=== PATIENT | female | born 1985 | race Caucasian/White ===

== ENCOUNTER 2021-03-17 18:28 | Emergency (ER) | payer OTHER, BC, SELFPAY ==
[2021-03-17 18:29] VITALS: BP 128/63; PULSE 82; RESP 16; TEMP 36.6; O2SAT 99; BMI 26.1
--- NOTE | 2021-03-17 18:52 | EDS_ITS ---
HPI History of Present Illness HPI Narrative: Patient presents with right hand injury that occurred today. Patient states she got her hand caught between a piece of heavy plastic and a movable ladder. Patient states the pain is worse over the ulnar aspect of the right hand over the fourth and fifth metacarpals and ulnar aspect of the wrist. Patient states the pain is worse with certain movements. Patient midst to some tingling in her fingers. Patient describes her pain as sharp and stabbing. Patient states the pain has been shooting up her forearm. Patient denies any other injuries. Chief Complaint: Upper Extremity Injury Informant: patient Occured/Mechanism Mechanism/Context: Yes blunt trauma Onset/Context/Timing Onset: Today Context: Sudden Onset Timing: Continuous Quality of Pain: Sharp and Stabbing Location: Right hand Worsened by: Movement Relieved by: Nothing Associated Symptoms Associated Symptoms: Positive for Parasthesia; Negative for Weakness and Loss of Funtion [facility] Medical History Eczema Allergy/AdvReac Type Severity Reaction Status Date / Time amoxicillin Allergy Rash Verified 03/17/21 18:33 bee venom protein (honey bee) Allergy Itching Verified 03/17/21 18:33 cefadroxil [From Duricef] Allergy Hives Verified 03/17/21 18:33 Surgical History Hx of appendectomy Social History Smoking Status: Never smoker ROS ROS ED Constitutional Constitutional ED: Denies chills or fever(s) Eyes Eyes: Denies blurry vision or change in vision ENT ENT ED: Reports sore throat; Denies rhinorrhea Cardiovascular Cardiovascular: Denies chest pain or palpitations Respiratory/Chest Respiratory/Chest: Denies cough or dyspnea Gastrointestinal Gastrointestinal: Denies nausea or vomiting Genitourinary Genitourinary ED: Denies dysuria or hematuria Musculoskeletal Musculoskeletal: Reports back pain; Denies neck pain Integumentary Reports rash; Denies abscess Neurologic Neurologic: Denies headache(s) or weakness Allergic/Immunologic Allergic/Immunologic ED: Denies mouth swelling or urticaria EXAM Physical Exam Const Vital Signs: 03/17/21 18:29 Temperature 97.8 F Temperature Source Temporal Pulse Rate 82 Respiratory Rate 16 Blood Pressure 128/63 H Blood Pressure Mean 84 Pulse Ox 99 Positive well nourished and well developed General Appearance ED: well developed HEENT Reports moist mucous membranes Extremity Extremity Narrative: There is tenderness with mild edema and ecchymosis over the right fourth and fifth metacarpals. There is no bony crepitance or step-off. There is no obvious deformity noted. Range of motion was slightly limited in flexion of the fourth and fifth MP joints secondary to pain. Sensation was intact to light touch in the radial, median, and ulnar areas. Strength is 5/5 in the radial, median, and ulnar areas. Radial pulses are equal bilaterally. There is no tenderness over the right elbow. Neuro oriented x3, CN's II-XII intact bilaterally, moves all extremities, no focal motor deficits and no sensory deficits noted Sensorium / Orientation: alert Psych mental status grossly normal MDM MDM MDM Narrative Medical decision making narrative: X-rays of the right hand were obtained. There are 3 views. On my interpretation, there is no acute fracture. There is no dislocation. There is some mild soft tissue swelling. Radiologist also interpreted the x-rays and agrees. Patient was advised of her findings. Patient was given a Velcro wrist splint. Patient was instructed to ice and elevate the right wrist. Patient was instructed to take Tylenol or ibuprofen as needed for pain. Patient was instructed to follow-up with the now clinic since this is Workmen's Comp. Patient was given restrictions for work. Patient was instructed to return if worse in any way. Patient understood and was agreeable with the plan. All questions were answered. Discharge Plan Triage Chief Complaint: Upper Extremity Injury ED Provider: Adolfo Campbell Dx/Rx/DC Orders Clinical Impression: Contusion of right hand, initial encounter Instructions: ED Hand Contusion Stand Alone Forms: Work Status Form Primary Care Provider: Care Physician,No Primary Referrals: Care Physician,No Primary [Primary Care Provider] - Clinic,NOW [NON-STAFF] - 3-5 Days Disposition Disposition: Home, Self Care
--- NOTE | 2021-03-17 18:55 | RAD_ITS ---
STUDY: X-RAY - RIGHT HAND REASON FOR EXAM: Female, 35 years old. Injury/Pain TECHNIQUE: 3 view(s) of the hand. COMPARISON: None. FINDINGS: Normal radiocarpal articulation. Normal distal radioulnar joint. Normal visualized carpal bones. Normal carpal articulations Normal carpometacarpal articulation of the thumb. Normal second through fifth carpometacarpal joints. Normal metacarpi. Normal metacarpophalangeal joint of the thumb. Normal interphalangeal joint of the thumb. Normal proximal and distal phalanges of the thumb. Normal metacarpophalangeal joints of the second through fifth fingers. Normal proximal and distal interphalangeal joints of the second through fifth fingers. Normal phalanges of the second through fifth fingers. The soft tissue structures are unremarkable. RAD/Hand Min 3 Views IMPRESSION: Normal x-ray examination of the hand. Electronically Signed: Leif Mendoza MD at 19:21 EST Tel , Service support ,
[2021-03-17 19:55] VITALS: BP 128/72; PULSE 72; RESP 14; TEMP 36.9; O2SAT 98
== END 2021-03-17 20:11 | disposition home or self-care (01) ==
PROVIDERS: Emergency Provider Emergency Medicine; Visit Provider Emergency Medicine
DX: S60.221A Contusion of right hand, initial encounter (principal); W23.0XXA Caught, crushed, jammed, or pinched between moving objects, initial encounter; Y93.9 Activity, unspecified; Y92.9 Unspecified place or not applicable
CPT/HCPCS: 73130; 99283

== ENCOUNTER 2022-07-12 15:16 | Emergency (ER) | payer BC, SELFPAY ==
[2022-07-12 15:18] VITALS: BP 140/74; PULSE 66; RESP 20; TEMP 35.7; O2SAT 100; BMI 31.6
--- NOTE | 2022-07-12 15:36 | US_ITS ---
INDICATION: left sv pelvic pain -- PELVIC PAIN MID TO SLIGHTLY LEFT X 1 DAY EXAMINATION: Ultrasound US Transvaginal Non-OB TECHNIQUE: Transvaginal (for optimal evaluation of the adnexa) pelvic ultrasound was performed. Grayscale, spectral waveform, and color flow Doppler evaluation of the adnexa. COMPARISON: None. FINDINGS: UTERUS: Anteverted. The uterus measures 8.1 cm in length. There is no uterine mass. The endometrial stripe measures 8 mm in AP diameter which is within normal limits. RIGHT OVARY: 3.5 x 2.0 x 5.4 cm. Non-enlarged, normal echogenicity. There is normal arterial inflow and venous outflow present in the right ovary. LEFT OVARY: 2.5 x 2.8 x 1.7 cm. Non-enlarged, normal echogenicity. There is normal arterial inflow and venous outflow present in the left ovary. FREE FLUID: Trace free fluid within cul-de-sac. Small cervical nabothian cyst. US/Transvaginal Non- IMPRESSION: No acute ultrasonographic abnormality is identified. Electronically Signed: Yeison Graham MD at 18:23 EDT ,
--- NOTE | 2022-07-12 15:48 | ED.VIS.GI ---
HPI HPI - GI History of Present Illness Chief Complaint: Nausea/Vomiting Informant: patient Abdominal Pain/Flank Pain Onset: Today Context: Gradual Onset Timing: Continuous Quality: Aching Location: - (lower abd/pelvis, worse on L) Current Severity: Severe Maximum Severity: Severe Worsened by: Nothing Relieved by: Nothing Nausea/Vomiting/Emesis GI Symptom: Positive for Nausea and Vomiting Diarrhea/Melena/Hematochezia GI Symptom: Negative for Diarrhea, Melena or Hematochezia Associated Symptoms Associated Symptoms: Negative for Dysuria, Frequency, Hematuria or Urgency Narrative Narrative: Patient states she started her menstrual cycle yesterday. She started having severe lower abdominal pain today, it has progressed over the last several hours, this all occurred while she was at work. She states because of this, she cannot do what she usually does when this occurs, which is a couple times a year, which is to take a couple [id number] medications together for pain including Pamprin, and to sandwich myself between ice packs and a heating pad. When this occurs in the past, she states it consistently starts within 48 hours of starting her menstrual cycle. She states she usually has normal menstrual cycles that are regular, and the last few have been normal. When she started her cycle yesterday, it was not unexpected or unusual at all. She states in the past when she has had these episodes, they have occurred with her cycle. She states only thing that is different today is that she was at work and since she is actively having the discomfort she decided to come to the emergency department to see if anyone could determine a reason. Additionally she states she has a bit of whitecoat syndrome and for that reason has a hard time making appointments with doctors and does not have a family service worker. [facility] Medical History Contusion of right hand Eczema Home Medications cetirizine 10 mg tablet 10 mg QHS 07/12/22 [History Last Taken Unknown] cholecalciferol (vitamin D3) 25 mcg (1,000 unit) tablet (Vitamin D3) 25 mcg PO DAILY 07/12/22 [History Last Taken Unknown] fluticasone propionate 50 mcg/actuation nasal spray,suspension spray intranasal PRN Nasal Congestion 07/12/22 [History Last Taken Unknown] Allergy/AdvReac Type Severity Reaction Status Date / Time amoxicillin Allergy Rash Verified 07/12/22 15:18 bee venom protein (honey bee) Allergy Itching Verified 07/12/22 15:18 cefadroxil [From Duricef] Allergy Hives Verified 07/12/22 15:18 levofloxacin [From Levaquin] Allergy Other Verified 07/12/22 18:25 Surgical History Hx of appendectomy Social History Smoking Status: Never smoker ROS ROS ED Constitutional Constitutional ED: Denies chills or fever(s) Eyes Eyes: Denies change in vision or diplopia ENT ENT ED: Denies rhinorrhea or sore throat Cardiovascular Cardiovascular: Denies chest pain or palpitations Respiratory/Chest Respiratory/Chest: Denies cough or dyspnea Gastrointestinal Gastrointestinal: Reports abdominal pain, nausea and vomiting; Denies diarrhea Genitourinary Genitourinary ED: Denies dysuria, hematuria or urinary frequency Musculoskeletal Musculoskeletal: Reports back pain; Denies neck pain Integumentary Denies abscess or rash Neurologic Neurologic: Denies headache(s), paresthesias or weakness Psychiatric Psychiatric: Denies anxiety or suicidal thoughts EXAM Physical Exam Const Vital Signs: 07/12/22 15:18 07/12/22 18:20 Temperature 96.3 F L Temperature Source Temporal Pulse Rate 66 85 Respiratory Rate 20 H 16 Blood Pressure 140/74 H 127/67 H Blood Pressure Mean 96 87 Pulse Ox 100 97 Oxygen Delivery Method Room Air Room Air Positive well nourished and well developed Constitutional Narrative: In mild painful distress General Appearance ED: well developed HEENT Reports moist mucous membranes normocephalic and atraumatic Eyes PERRL and EOMs intact bilaterally Neck full ROM and supple Resp normal respiratory effort and clear to auscultation bilaterally Cardio regular rate, regular rhythm and no murmurs GI non-distended GI Narrative: Mild tenderness compared with the amount of pain patient is in, suprapubic and left pelvis area. Auscultation: normoactive bowel sounds Palpation: soft Back/Spine no CVA tenderness General Back: other FROM Extremity normal to inspection General Extremety ED: Negative for edema, pulses abnormal or tenderness General Extremity: Negative for edema or pulses abnormal Neuro oriented x3, CN's II-XII intact bilaterally and no sensory deficits noted Sensorium / Orientation: awake and alert Motor Exam: strength 5/5 throughout Skin no rashes or lesions noted and no wounds MDM MDM MDM Narrative Medical decision making narrative: Given the symptoms coinciding with her cycle, this seems more likely to be gynecologic in etiology. The patient is in agreement. We started with basic labs, urine, which was negative, and a transvaginal ultrasound to rule out torsion given how much pain she was in. Meanwhile she was treated with IV Toradol, Zofran, morphine. She felt a lot better on reevaluation. She does have a leukocytosis of 18.7, and the transvaginal ultrasound images are reviewed as well as the interpretation, and I agree with it. Basically normal. Given her leukocytosis and leftward shift, I recommended performing a CT of the abdomen/pelvis to rule out atypical presentations of other disease such as appendicitis, diverticulitis, or other GI inflammatory/infectious etiology. She was amenable. I reviewed those images and interpretation and I agree with it, basically normal again. The patient has been here for over 5 hours and is doing very well. She states typically when she has had these episodes they do not last 8 hours or so, she mainly came here because she was symptomatic during the time. Endometriosis is in the differential diagnosis here as well which we discussed, however odd that she would only have symptoms a couple times a year during a couple different cycles not everyone. I recommend close outpatient follow-up with gynecology. She is amenable to that. Given appropriate discharge instructions. Lab Data Attestation: I reviewed the patient's lab results. Labs: Laboratory Results - last 24 hr 07/12/22 07/12/22 07/12/22 16:11 16:11 17:23 WBC 18.7 H RBC 4.51 Hgb 12.6 Hct 38.7 MCV 85.8 MCH 27.9 MCHC 32.6 RDW Std Deviation 41.4 RDW Coeff of Casey 13.2 Plt Count 301 MPV 9.2 Immature Gran % (Auto) 0.700 Neut % (Auto) 88.2 H Lymph % (Auto) 7.9 L [place] % (Auto) 2.9 Eos % (Auto) 0.1 Baso % (Auto) 0.2 Absolute Neuts (auto) 16.5 H Absolute Lymphs (auto) 1.48 Nucleated RBC % 0 Sodium 139 Potassium 3.5 Chloride 109 H Carbon Dioxide 20.0 L Anion Gap 10 BUN 15 Creatinine 0.76 Estim Creat Clear Calc 89.22 Est GFR (MDRD) Af Amer 111 Est GFR (MDRD) Non-Af 92 BUN/Creatinine Ratio 19.8 Glucose 106 Calcium 8.9 Urine Color Yellow Urine Clarity Sl. Cloudy Urine pH 6.5 Ur Specific [place] 1.020 Urine Protein 30 H Urine Glucose (UA) Normal Urine Ketones 150 A* Urine Occult Blood 250 H Urine Nitrite Negative Urine Bilirubin Negative Urine Urobilinogen Normal Ur Leukocyte Esterase 25 H Urine RBC 50-100 SEEN Urine WBC 0-5 SEEN Ur Squamous Epith Cells 0-5 SEEN Urine Bacteria 0 SEEN Urine Mucus 0 SEEN Urine Test 07/12/22 17:23 WBC RBC Hgb Hct MCV MCH MCHC RDW Std Deviation RDW Coeff of Casey Plt Count MPV Immature Gran % (Auto) Neut % (Auto) Lymph % (Auto) [place] % (Auto) Eos % (Auto) Baso % (Auto) Absolute Neuts (auto) Absolute Lymphs (auto) Nucleated RBC % Sodium Potassium Chloride Carbon Dioxide Anion Gap BUN Creatinine Estim Creat Clear Calc Est GFR (MDRD) Af Amer Est GFR (MDRD) Non-Af BUN/Creatinine Ratio Glucose Calcium Urine Color Urine Clarity Urine pH Ur Specific [place] Urine Protein Urine Glucose (UA) Urine Ketones Urine Occult Blood Urine Nitrite Urine Bilirubin Urine Urobilinogen Ur Leukocyte Esterase Urine RBC Urine WBC Ur Squamous Epith Cells Urine Bacteria Urine Mucus Urine Test Negative Radiography Diagnostic Testing: Clinical Impression(s) from Imaging Studies Transvaginal US 07/12/22 15:36 IMPRESSION: No acute ultrasonographic abnormality is identified. Electronically Signed: Yeison Graham MD at 18:23 EDT , Abdomen/Pelvis CT 07/12/22 19:17 IMPRESSION: Trace free fluid which could be physiologic. Normal-appearing uterus and adnexa. No focal inflammatory process identified elsewhere in the abdomen. Electronically Signed: Yeison Graham MD at 19:47 EDT , Discharge Plan Triage Chief Complaint: Nausea/Vomiting Other Complaint: Dizziness ED Provider: Scott Bobby Dx/Rx/DC Orders Clinical Impression: Pelvic pain in female Instructions: ED Pelvic Pain, Unknown Cause Prescriptions: No Action cetirizine 10 mg tablet 10 mg QHS Label Comments: TAKE 1 TABLET BY MOUTH ONCE DAILY FOR 30 DAYS fluticasone propionate 50 mcg/actuation spray,suspension INTRANASAL PRN (Reason: Nasal Congestion) Label Comments: SPRAY 2 SPRAYS IN EACH NOSTRIL DAILY FOR 1 WEEK, THEN 1 TO 2 SPRAYS DAILY. (USE SMALLEST DOSE POSSIBLE FOR SYMPTOM CONTROL AFTER WEEK 1) cholecalciferol (vitamin D3) [Vitamin D3] 25 mcg (1,000 unit) Tablet 25 mcg PO DAILY Primary Care Provider: Care Physician,No Primary Referrals: Alisson Forrest MD [Med Staff - Active Staff] - Care Physician,No Primary [Primary Care Provider] - Disposition Disposition: Home, Self Care
[2022-07-12] MEDS: 0.9% Normal Saline 1,000 ML 1000 ML IV (15:55)
[2022-07-12] MEDS: Ketorolac 15 MG/ML Vial IV (15:56)
[2022-07-12] MEDS: Morphine 4 MG/ML Syringe IV (15:56)
[2022-07-12] MEDS: Ondansetron 4 MG/2 ML Vial IV (15:56)
[2022-07-12 16:26] LABS: Absolute Lymphocyte Count 1.48 X10^3/uL (0.83-4.51); Absolute Neutrophil Count 16.5 X10^3/uL (2.0-7.7); Basophil# 0.04 X10^3/uL; Basophil% 0.2 % (0-1); Eosinophil# 0.01 X10^3/uL; Eosinophils% 0.1 % (0-5); Hematocrit 38.7 % (37-47); Hemoglobin 12.6 g/dL (12.0-15.0); Lymphocyte # 1.48 X10^3/ul (0.83-4.51); Lymphocyte % 7.9 % (19-41); Mean Corp Hgb Conc 32.6 g/dL (32-36); Mean Corpuscular Hgb 27.9 pg (27.0-32.0); Mean Corpuscular Volume 85.8 fL (81-99); Mean Platelet Vol. 9.2 fl (6.2-12.0); Monocyte# 0.55 X10^3/uL; Monocyte% 2.9 % (0-10); NRBC Flagged by Analyzer 0 % (0-5); Neutrophil # 16.51 X10^3/uL (2.7-7.7); Neutrophil % 88.2 % (47-70); Platelet Count 301 K/mm3 (150-450); RBC Distribution Width CV 13.2 % (11.6-14.6); RBC Distribution Width SD 41.4 fl (35.1-43.9); Red Blood Count 4.51 M/mm3 (4.2-5.4); White Blood Count 18.7 K/mm3 (4.4-11.0)
[2022-07-12 16:45] LABS: Anion Gap 10 (5-15); BUN 15 mg/dL (7-18); BUN/Creat Ratio 19.8 RATIO (10-20); Calcium,Total 8.9 mg/dL (8.5-10.1); Chloride 109 mmol/L (98-107); Creatinine, Serum 0.76 mg/dL (0.55-1.02); EST Glomerular Filtration Rate 92 mL/min (>60); Est Glom Filt Rate - Afr Amer 111 mL/min (>60); Estimated Creatinine Clearance 89.22 ml/min; Glucose 106 mg/dL (74-106); Potassium 3.5 mmol/L (3.5-5.1); Sodium Level 139 mmol/L (136-145)
[2022-07-12 17:30] LABS: Bacteria 0 SEEN /hpf (None Seen); Mucous, Urine 0 SEEN /hpf (<or=2+)
[2022-07-12 17:31] LABS: Color, Urine Yellow (Yellow); Glucose, Dipstick Normal (Normal); Leukocyte Esterase-Dipstick 25 /ul (Negative); Nitrite-Dipstick Negative (Negative); Occult Blood-Urine 250 /ul (Negative); Protein-Dipstick 30 mg/dl (Negative); Urine Bilirubin Dipstick Negative (Negative); Urine Clarity Sl. Cloudy (Clear); Urine Urobilinogen Normal (Normal); Urine pH 6.5 (5.0 - 8.0)
[2022-07-12 17:35] LABS: Ketone-Dipstick 150 mg/dl (Negative)
[2022-07-12 17:36] LABS: Red Blood Cells-Urine 50-100 SEEN /hpf (0-5)
[2022-07-12 17:37] LABS: Squamous Epithelial Cells - UA 0-5 SEEN /hpf (5-10); White Blood Cells 0-5 SEEN /hpf (0-5)
[2022-07-12 18:20] VITALS: BP 127/67; PULSE 85; RESP 16; O2SAT 97
[2022-07-12 18:24] LABS: Internal QC Validated? YES +Cl - CLEAR BKGD
[2022-07-12 18:25] LABS: Pregnancy, Urine Negative Negative
--- NOTE | 2022-07-12 19:17 | CT_ITS ---
INDICATION: lower abd pain, leukocytosis, neg pelv u/s EXAMINATION: CT ABDOMEN AND PELVIS WITH CONTRAST - CT Abdomen And Pelvis W/ Contrast Injection TECHNIQUE: Helically acquired images were obtained of the abdomen and pelvis following IV contrast. A radiation dose optimization technique was used for this scan. IV Contrast dosage and agent: 100 cc Isovue-300 Oral contrast: None. COMPARISON: None. FINDINGS: LOWER CHEST: Lung bases are clear. No cardiomegaly or pericardial effusion. LIVER: Homogeneous. No focal mass. GALLBLADDER AND BILIARY TREE: No calcified gallstones. No gallbladder distension or wall edema. No intra- or extrahepatic biliary ductal dilation. PANCREAS: No focal cystic or solid mass. SPLEEN: Normal size without focal cystic or solid mass. ADRENAL GLANDS: No nodules. KIDNEYS AND URETERS: Normal renal size and position. No hydronephrosis. PERITONEUM: Trace free pelvic fluid. No free air. No other fluid collection. BOWEL: No evidence of acute appendicitis. No stomach or bowel distension. No focal inflammatory change. LYMPH NODES: No enlarged mesenteric or retroperitoneal lymph nodes. VESSELS: Aorta is non-dilated. URINARY BLADDER: Unremarkable. REPRODUCTIVE ORGANS: No pelvic masses. ABDOMINAL WALL: No discrete abdominal or pelvic wall hernia. BONES: No lytic or blastic abnormality. CT/Abdomen/Pelvis W IV Cont ONLY IMPRESSION: Trace free fluid which could be physiologic. Normal-appearing uterus and adnexa. No focal inflammatory process identified elsewhere in the abdomen. Electronically Signed: Yeison Graham MD at 19:47 EDT ,
== END 2022-07-12 20:34 | disposition home or self-care (01) ==
PROVIDERS: Emergency Provider Emergency Medicine; Visit Provider Emergency Medicine
DX: R10.2 Pelvic and perineal pain (principal); R11.2 Nausea with vomiting, unspecified; R42 Dizziness and giddiness; M54.9 Dorsalgia, unspecified; Z79.899 Other long term (current) drug therapy
CPT/HCPCS: 36415; 74177; 76830; 80048; 81001; 81025; 85025; 93976; 96361; 96374; 96375; 99283; Q9967; A4216; J2405

== ENCOUNTER 2022-10-02 19:16 | Emergency (ER) | payer BC, SELFPAY ==
[2022-10-02 19:18] VITALS: BP 130/69; PULSE 85; RESP 16; TEMP 36.7; O2SAT 98; BMI 33.3
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
== END 2022-10-02 21:41 | disposition home or self-care (01) ==
PROVIDERS: Emergency Provider Emergency Medicine; Visit Provider Emergency Medicine
DX: S13.4XXA Sprain of ligaments of cervical spine, initial encounter (principal); M79.644 Pain in right finger(s); V43.92XA Unspecified car occupant injured in collision with other type car in traffic accident, initial encounter
CPT/HCPCS: 99282